=== PATIENT | male | born 1965 | race Caucasian/White ===

== ENCOUNTER 2018-01-01 08:29 | Emergency (ER) | payer BC ==
[2018-01-01] MEDS ORDERED: NS(*) 0.9% 1000 ML BAG 1,000 ML IV ONE (08:31)
--- NOTE | 2018-01-01 08:31 | ER Report ---
History and Physical Time Seen By MD: 08:31 HPI/ROS CHIEF COMPLAINT: Chest pain, shortness of breath, radiation down right arm. HISTORY OF PRESENT ILLNESS: Patient is a 52-year-old male here with complaints of chest pain with radiation to the back between the scapula and down the right arm. Patient reports having a prior cardiac catheterization with no need for stent placement. Patient does have a history of high blood pressure, denies hyperlipidemia, denies current smoking however does have remote history of smoking. He does have a family history significant for cardiac disease. He also reports having difficulty taking a deep breath at time of onset which is approximately 7:30 with some pleuritic component. 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 Denies headache, blurry vision, trauma, abdominal pain, nausea. He was given aspirin by EMS however his blood pressure was soft and he was not given nitroglycerin. REVIEW OF SYSTEMS: Constitutional: No fever, no chills. Eyes: No discharge. ENT: No sore throat. Cardiovascular: + mild chest pain, no palpitations. Respiratory: No cough, + shortness of breath. Gastrointestinal: No abdominal pain, no vomiting. Genitourinary: No hematuria. Musculoskeletal: No back pain. Skin: No rashes. Neurological: No headache. Allergies: Coded Allergies: cephalexin (Verified Allergy, Mild, nausea, weakness, 01/01/18) codeine (Verified Allergy, Mild, hives, 01/01/18) Home Meds Reported Medications Allopurinol (Allopurinol) 300 Mg Tablet 01/01/18 Carvedilol (CARVEDILOL) 25 Mg Tablet 01/01/18 Lisinopril/Hydrochlorothiazide (LISINOPRIL-HCTZ 20-12.5 MG TAB) 1 Each Tablet 01/01/18 Losartan Potassium (LOSARTAN POTASSIUM) 100 Mg Tablet, 100 MG PO QDAY 01/01/18 Lisinopril (LISINOPRIL) 10 Mg Tablet, 12.5 MG PO QDAY, TAB 01/01/18 Constitutional Vital Sign - Last 24 Hours 01/01/18 01/01/18 01/01/18 01/01/18 08:29 08:31 08:32 08:40 Temp 97.9 Pulse ??? 89 Resp 16 B/P (MAP) 127/86 (100) 127/86 138/98 (111) Pulse Ox 94 O2 Delivery Room Air 18/18 6/18/18 6/18/18 6/18/18 08:44 08:47 08:59 09:00 Pulse 92 90 Resp 16 25 B/P (MAP) 104/78 (87) Pulse Ox 92 O2 Flow Rate 2.0 6/18/18 6/18/18 6/18/18 6/18/18 09:14 09:20 09:29 09:40 Pulse ? B/P (MAP) 96/71 (79) 94/69 (77) 618/18 6/18/18 6/18/18 6/18/18 09:44 09:59 10:00 10:14 Pulse 87 83 81 Resp 27 19 23 B/P (MAP) 102/77 (85) Pulse Ox 93 94 94 6/18/18 6/18/18 6/18/18 6/18/18 10:15 10:20 10:30 10:35 Pulse 81 77 Resp 22 16 B/P (MAP) 97/77 (84) 97/74 (82) Pulse Ox 95 96 6/18/18 6/18/18 6/18/18 6/18 10:45 10:50 11:00 11:05 Pulse 82 84 Resp 21 24 B/P (MAP) 94/71 (79) ???/??? (1665) Pulse Ox 95 95 6/18/18 6/18/18 6/18/18 618/18 11:15 11:20 11:30 11:35 Pulse 78 82 Resp 8 21 B/P (MAP) 105/72 (83) 96/71 (79) Pulse Ox 96 96 6/18/18 6/18/18 6/18/18 6/18/18 11:45 11:50 12:00 12:05 Pulse 80 82 Resp 27 11 B/P (MAP) 97/69 (78) 95/71 (79) Pulse Ox 97 99 6/18/18 6/18/18 6/18/18 6/18/18 12:10 12:15 12:20 12:25 Pulse 79 77 77 ??? Resp 23 9 12 B/P (MAP) 104/74 (84) Pulse Ox 98 99 95 6/18/18 6/18/18 12:30 12:35 Pulse ? B/P (MAP) ???/??? (8608) Intake and Output 01/01/18 01/01/18 01/02/18 14:59 22:59 06:59 Intake Total 1000 ml Balance 1000 ml Physical Exam General Appearance: The patient is alert, has no immediate need for airway protection and no signs of toxicity. No acute distress, mild discomfort secondary to pain Eyes: Pupils equal and round no pallor or injection. ENT, Mouth: Mucous membranes are moist. Respiratory: There are no retractions, lungs are clear to auscultation. Cardiovascular: Regular rate and rhythm. Gastrointestinal: Abdomen is soft and non tender, no masses, bowel sounds normal. Neurological: No focal deficits Skin: Warm and dry, no rashes. Musculoskeletal: Neck is supple non tender. Extremities are nontender, nonswollen and have full range of motion. DIFFERENTIAL DIAGNOSIS: After history and physical exam differential diagnosis was considered for chest pain including but not limited to myocardial ischemia, pericarditis pulmonary embolus, chest wall pain, pleural inflammation and pulmonary infectious causes. Medical Decision Making Data Points Result Diagram: 01/01/18 0825 01/01/18 0825 Laboratory Hematology Test 01/01/18 08:25 01/01/18 08:50 01/01/18 11:32 Red Blood Count 5.53 M/uL (4.00-5.60) Mean Corpuscular Volume 89.9 fL (80.0-96.0) Mean Corpuscular Hemoglobin 31.2 pg (26.0-33.0) Mean Corpuscular Hemoglobin Concent 34.7 g/dL (32.0-36.0) Red Cell Distribution Width 14.1 % (11.5-14.5) Mean Platelet Volume 8.1 fL (7.2-11.1) Neutrophils (%) (Auto) 73.6 % (39.4-72.5) Lymphocytes (%) (Auto) 14.2 % (17.6-49.6) Monocytes (%) (Auto) 9.0 % (4.1-12.4) Eosinophils (%) (Auto) 2.5 % (0.4-6.7) Basophils (%) (Auto) 0.7 % (0.3-1.4) Nucleated RBC Relative Count (auto) 0.0 /100WBC Neutrophils # (Auto) 9.0 K/uL (2.0-7.4) Lymphocytes # (Auto) 1.7 K/uL (1.3-3.6) Monocytes # (Auto) 1.1 K/uL (0.3-1.0) Eosinophils # (Auto) 0.3 K/uL (0.0-0.5) Basophils # (Auto) 0.1 K/uL (0.0-0.1) Nucleated RBC Absolute Count (auto) 0.00 K/uL Peripheral Blood Smear No Y/N Sodium Level 141 mmol/L (137-145) Potassium Level 4.0 mmol/L (3.5-5.0) Chloride Level 105 mmol/L (98-107) Carbon Dioxide Level 19 mmol/L (22-30) Blood Urea Nitrogen 20 mg/dl (9-21) Creatinine 1.20 mg/dl (0.66-1.25) Glomerular Filtration Rate Calc > 60.0 Random Glucose 196 mg/dl (75-110) Calcium Level 8.8 mg/dl (8.4-10.2) Total Bilirubin 0.7 mg/dl (0.2-1.3) Aspartate Amino Transf (AST/SGOT) 23 U/L (0-35) Alanine Aminotransferase (ALT/SGPT) 21 U/L (0-56) Alkaline Phosphatase 110 U/L (0-126) B-Type Natriuretic Peptide 12 pg/ml (0-100) Total Protein 7.2 g/dl (6.3-8.2) Albumin 4.3 g/dl (3.5-5.0) Prothrombin Time 13.0 seconds (12.0-14.4) Prothromb Time International Ratio 0.98 Activated Partial Thromboplast Time 24 seconds (23-35) Troponin I < 0.012 ng/ml Chemistry Test 01/01/18 08:25 01/01/18 08:50 01/01/18 11:32 White Blood Count 12.3 k/uL (4.5-11.0) Red Blood Count 5.53 M/uL (4.00-5.60) Hemoglobin 17.3 g/dL (14.0-18.0) Hematocrit 49.7 % (42.0-52.0) Mean Corpuscular Volume 89.9 fL (80.0-96.0) Mean Corpuscular Hemoglobin 31.2 pg (26.0-33.0) Mean Corpuscular Hemoglobin Concent 34.7 g/dL (32.0-36.0) Red Cell Distribution Width 14.1 % (11.5-14.5) Platelet Count 317 K/uL (150-450) Mean Platelet Volume 8.1 fL (7.2-11.1) Neutrophils (%) (Auto) 73.6 % (39.4-72.5) Lymphocytes (%) (Auto) 14.2 % (17.6-49.6) Monocytes (%) (Auto) 9.0 % (4.1-12.4) Eosinophils (%) (Auto) 2.5 % (0.4-6.7) Basophils (%) (Auto) 0.7 % (0.3-1.4) Nucleated RBC Relative Count (auto) 0.0 /100WBC Neutrophils # (Auto) 9.0 K/uL (2.0-7.4) Lymphocytes # (Auto) 1.7 K/uL (1.3-3.6) Monocytes # (Auto) 1.1 K/uL (0.3-1.0) Eosinophils # (Auto) 0.3 K/uL (0.0-0.5) Basophils # (Auto) 0.1 K/uL (0.0-0.1) Nucleated RBC Absolute Count (auto) 0.00 K/uL Peripheral Blood Smear No Y/N Glomerular Filtration Rate Calc > 60.0 Calcium Level 8.8 mg/dl (8.4-10.2) Total Bilirubin 0.7 mg/dl (0.2-1.3) Aspartate Amino Transf (AST/SGOT) 23 U/L (0-35) Alanine Aminotransferase (ALT/SGPT) 21 U/L (0-56) Alkaline Phosphatase 110 U/L (0-126) B-Type Natriuretic Peptide 12 pg/ml (0-100) Total Protein 7.2 g/dl (6.3-8.2) Albumin 4.3 g/dl (3.5-5.0) Prothrombin Time 13.0 seconds (12.0-14.4) Prothromb Time International Ratio 0.98 Activated Partial Thromboplast Time 24 seconds (23-35) Troponin I < 0.012 ng/ml Coagulation Test 01/01/18 08:50 Prothrombin Time 13.0 seconds Prothromb Time International Ratio 0.98 Activated Partial Thromboplast Time 24 seconds EKG/Imaging EKG Interpretation 12 lead EKG: Normal sinus rhythm with left axis deviation rate 95, no ischemic changes Rhythm: normal sinus rhythm [place]: Left axis deviation QRS: normal ST segments: normal [ ] Monitor Interpretation: Normal Sinus Rhythm Imaging Exam type: CHEST PA AND LAT History: Respiratory distress Comparison: None. Findings: The lungs are free of acute effusions, infiltrates or edema. Cardiac silhouette is normal in size. The trachea midline. There are mild spondylotic changes of the thoracic spine. IMPRESSION: 1. No acute cardiac pulmonary process is seen CTA CHEST with contrast (PULM ANG) EXAMINATION: CTA of the chest with IV contrast History : Chest pain TECHNIQUE: Pulmonary embolus protocol - Thin-slice axial imaging of the chest was performed during maximal pulmonary arterial opacification with intravenous nonionic iodinated contrast. 3D coronal slab MIPs and 2D reconstructions in the coronal and sagittal planes were performed to aid in pulmonary embolus detection. Application Administrator images have been stored on PACS. One of the following dose optimization techniques was utilized in the performance of this exam: Automated exposure control; adjustment of the mA and/ or kV according to the patient's size; or use of an iterative reconstruction technique. Specific details can be referenced in the facility's radiology CT exam operational policy. Contrast: 100 cc of Isovue-370 COMPARISON STUDIES: none. FINDINGS: Please note that this exam is optimized for assessment of the pulmonary arteries and is not intended as a diagnostic study of the thoracic aorta, coronary arteries or venous structures. Angiographic Findings: Pulmonary arteries: There are no filling defects in the main, right, left, lobar , segmental or visualized sub-segmental branches of the pulmonary arterial system Other vasculature: The thoracic aorta is not entirely enhance but there is no visualized aneurysm or dissection of the thoracic aorta. Coronary arterial calcification of the LAD is noted.. Additional non-angiographic findings: Lungs / Pleura: negative. Mediastinum / Ju: negative. Heart / Pericardium: negative. Lymph node assessment: negative Musculoskeletal / Body wall: Patient has a mild scoliosis with degenerative changes. Upper abdomen: negative IMPRESSION: 1. Unremarkable CTA of the chest. No evidence for pulmonary emboli the subsegmental level. No definitive thoracic aneurysm or dissection. 2. Coronary arterial calcification is noted. ED Course/Re-evaluation ED Course Patient is a 52-year-old male here with complaints of chest pain with radiation to the back and down the right arm. He does have a history significant for hypertension however he denies hyperlipidemia, current smoking history. He does admit to a remote history of smoking as well as family history of cardiac disease. He is in the area for work and he reports approximate 7:30 he developed acute onset of chest pain as well as a component of pleuritic chest pain shortness of breath. He was given aspirin by EMS however his blood pressure was low sodium was not given nitroglycerin initially. Patient reports that his pain is improving at time of initial evaluation. He does have a history of a cardiac catheterization with stent placement. 2 set troponins were negative, 2nd was at 1130. CTA was completed and showed no acute findings of PE or infiltrates. Patient was advised to follow up with cardiology and PCP for further evaluation. Patient was well appearing at time of discharge. Decision to Disposition Date: Jan 01, 2018 Decision to Disposition Time: 12:14 Depart Departure Latest Vital Signs Vital Signs Date Time Temp Pulse Resp B/P (MAP) Pulse Ox O2 Delivery O2 Flow Rate FiO2 01/01/18 12:35 ??? 01/01/18 12:30 ???/??? (1665) 01/01/18 12:20 12 95 01/01/18 08:47 2.0 01/01/18 08:32 97.9 Room Air Impression: Primary Impression: Chest pain Additional Impression: Shortness of breath Condition: Improved Disposition: HOME OR SELF-CARE Patient Instructions: Chest Pain (ED), Dyspnea (ED) Additional Instructions: Please follow up with a public health sanitarian in the next week in order to have further testing. Your CTA of the chest showed no acute pulmonary embolisms or infiltrates. A 2 set cardiac enzyme test was negative.. Please return promptly if you develop worsening symptoms, chest, shortness breath, fevers, chills Problem Qualifiers MONICA MONTERROSO DO Jan 01, 2018 08:31
[2018-01-01] MEDS ORDERED: NITROGLYCERIN 0.4 MG SUBL SL ONE (08:35)
[2018-01-01] MEDS ORDERED: ALLO-2 (08:47)
[2018-01-01] MEDS ORDERED: CARV25TA78 (08:47)
[2018-01-01] MEDS ORDERED: LISI-353 (08:47)
[2018-01-01] MEDS ORDERED: LISI-362 PO (08:47)
[2018-01-01] MEDS ORDERED: LOSA100T67 PO (08:47)
[2018-01-01 08:51] LABS: PLATELET COUNT, AUTOMATED 317 K/uL (150-450)
[2018-01-01 09:07] LABS: INR 0.98
[2018-01-01] MEDS ORDERED: NS 0.9% 25 ML BAG 50 ML ONE (09:20)
[2018-01-01] MEDS ORDERED: IOPAMIDOL 76% 100 ML INFUS BTL 100 ML ONE (09:20)
--- NOTE | 2018-01-01 09:26 | EKG ---
FACILITY: [facility] - [place] PATIENT NAME: ALIS BOSE : [id number] MR: [id number] V: [id number] EXAM DATE: ORDERING PHYSICIAN: MONICA MONTERROSO TECHNOLOGIST: BEVERLY Test Reason : CP Blood Pressure : / mmHG Vent. Rate : 095 BPM Atrial Rate : 095 BPM P-R Int : 156 ms QRS Dur : 092 ms QT Int : 374 ms P-R-T Axes : 021 -38 005 degrees QTc Int : 469 ms Normal sinus rhythm Left axis deviation Diffuse, non-specific T flattening No previous ECGs available Confirmed by MERCEDES OVALLE ([id number]) on 01/01/2018 3:57:22 PM Referred By: Confirmed By:MERCEDES OVALLE
--- NOTE | 2018-01-01 09:57 | RADIOLOGY IMAGING REPORT ---
FACILITY: [facility] [place] PATIENT NAME: Francisco Khan : 1965 MR: [id number] V: [id number] EXAM DATE: ORDERING PHYSICIAN: MONICA MONTERROSO TECHNOLOGIST: Location: [facility] [place] Patient: Francisco Khan : 1965 Visit/Account:[id number] Date of Sevice: 01/01/2018 Exam type: CHEST PA AND LAT History: Respiratory distress Comparison: None. Findings: The lungs are free of acute effusions, infiltrates or edema. Cardiac silhouette is normal in size. The trachea midline. There are mild spondylotic changes of the thoracic spine. IMPRESSION: 1. No acute cardiac pulmonary process is seen Report Dictated By: Bonnie Verduzco MD at 01/01/2018 9:37 AM Report E-Signed By: Bonnie Verduzco MD at 01/01/2018 9:54 AM [id number]
--- NOTE | 2018-01-01 10:24 | RADIOLOGY IMAGING REPORT ---
FACILITY: [facility] PATIENT NAME: Francisco Khan : 1965 MR: [id number] V: [id number] EXAM DATE: ORDERING PHYSICIAN: MONICA MONTERROSO TECHNOLOGIST: Location: [facility] Patient: Francisco Khan : 1965 Visit/Account:[id number] Date of Sevice: 01/01/2018 CTA CHEST with contrast (PULM ANG) EXAMINATION: CTA of the chest with IV contrast History : Chest pain TECHNIQUE: Pulmonary embolus protocol - Thin-slice axial imaging of the chest was performed during maximal pulmonary arterial opacification with intravenous nonionic iodinated contrast. 3D coronal sla b MIPs and 2D reconstructions in the coronal and sagittal planes were performed to aid in pulmonary e mbolus detection. Supervisor Maintenance images have been stored on PACS. One of the following dose optimization techniques was utilized in the performance of this exam: Autom ated exposure control; adjustment of the mA and/or kV according to the patient's size; or use of an i terative reconstruction technique. Specific details can be referenced in the facility's radiology C T exam operational policy. Contrast: 100 cc of Isovue-370 COMPARISON STUDIES: none. FINDINGS: Please note that this exam is optimized for assessment of the pulmonary arteries and is not intended as a diagnostic study of the thoracic aorta, coronary arteries or venous structures. Angiographic Findings: Pulmonary arteries: There are no filling defects in the main, right, left, lobar, segmental or visual ized sub-segmental branches of the pulmonary arterial system Other vasculature: The thoracic aorta is not entirely enhance but there is no visualized aneurysm o r dissection of the thoracic aorta. Coronary arterial calcification of the LAD is noted.. Additional non-angiographic findings: Lungs / Pleura: negative. Mediastinum / Ju: negative. Heart / Pericardium: negative. Lymph node assessment: negative Musculoskeletal / Body wall: Patient has a mild scoliosis with degenerative changes. Upper abdomen: negative IMPRESSION: 1. Unremarkable CTA of the chest. No evidence for pulmonary emboli the subsegmental level. No defi nitive thoracic aneurysm or dissection. 2. Coronary arterial calcification is noted. Report Dictated By: Parag Bernal MD at 01/01/2018 10:10 AM Report E-Signed By: Parag Bernal MD at 01/01/2018 10:20 AM WSN:[id number]
== END 2018-01-01 12:41 | disposition home or self-care (01) ==
LOC: ER 08:34
DX: R07.9 Chest pain, unspecified (principal); R06.02 Shortness of breath; I10 Essential (primary) hypertension; Z87.891 Personal history of nicotine dependence
CPT/HCPCS: 36415; 71046; 71275; 83880; 84484; 85025; 85610; 85730; 93005; 96360; 96361; 99284; J7030; Q9967; 82040; 82247; 82310; 82374; 82435; 82565; 82947; 84075; 84132; 84155; 84295; 84450; 84460; 84520

== ENCOUNTER → 2018-01-01 | Outpatient (CLI) | payer BC ==
[~2018-01-01] MED LIST: ALLO-2; CARV25TA78; LISI-353; LISI-362 PO; LOSA100T67 PO
== END ==
LOC: AMB 08:06
PROVIDERS: ATTEND Nurse Practitioner
DX: M54.89 Other dorsalgia (principal); R07.89 Other chest pain
CPT/HCPCS: A0425; A0427